=== PATIENT | female | born 2000 | race Caucasian/White ===

== ENCOUNTER → 2020-06-20 | Outpatient (CLI) | payer OTHER ==
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
== END | disposition home or self-care (01) ==
LOC: RADCTMAIN 07:56
PROVIDERS: ATTEND Family Medicine
DX: S05.12XA Contusion of eyeball and orbital tissues, left eye, initial encounter (principal)
CPT/HCPCS: 70480

== ENCOUNTER 2021-02-04 16:45 | Emergency (ER) | payer OTHER ==
[2021-02-04 17:18] VITALS: TEMP 98.1
--- NOTE | 2021-02-04 19:51 | ED ---
General Adult HPI - General Chief complaint: Abdominal Pain Stated complaint: , Cramping Source: patient, family, RN notes reviewed Mode of arrival: ambulatory Limitations: no limitations - History of Present Illness Initial comments: 20-year-old female presents to the emergency department for evaluation of vaginal bleeding and discharge, and low back pressure. Patient states she had unprotected sex approximately 5 weeks ago and then had an abnormal period this month. States she had more cramping than usual which has since resolved. States she is concerned about possible . Denies fever, chills, headache, chest pain, shortness of breath, vomiting, constipation, diarrhea or dysuria. - Related Data Previous Rx's Medication Instructions Recorded Ondansetron Odt [Zofran Odt] 4 mg PO Q8HR PRN #10 tab 02/04/21 Allergies Allergy/AdvReac Type Severity Reaction Status Date / Time No Known Allergies Allergy Verified 02/04/21 17:18 Review of Systems ROS Statement: Those systems with pertinent positive or pertinent negative responses have been documented in the HPI. ROS Other: All systems not noted in ROS Statement are negative. Past Medical History Past Medical History: No Reported History History of Any Multi-Drug Resistant Organisms: None Reported Past Surgical History: No Surgical Hx Reported Past Psychological History: Anxiety, Depression, PTSD Smoking Status: Current every day smoker Past Alcohol Use History: None Reported Past Drug Use History: None Reported General Exam Limitations: no limitations (Well-developed, well-nourished female in no acute distress. Initial temperature 98.1, pulse 107, respirations 18, blood pressure 137/91, pulse ox 98% on room air) General appearance: alert, in no apparent distress ENT exam: Present: normal exam, normal oropharynx, mucous membranes moist Respiratory exam: Present: normal lung sounds bilaterally. Absent: respiratory distress, wheezes, rales, rhonchi, stridor Cardiovascular Exam: Present: regular rate, normal rhythm, normal heart sounds. Absent: systolic murmur, diastolic murmur, rubs, gallop, clicks GI/Abdominal exam: Present: soft, normal bowel sounds. Absent: distended, tenderness, guarding, rebound, rigid Back exam: Present: normal inspection. Absent: CVA tenderness (R), CVA tenderness (L) Neurological exam: Present: alert, oriented X3, CN II-XII intact Psychiatric exam: Present: normal affect, normal mood Skin exam: Present: warm, dry, intact, normal color. Absent: rash Course Vital Signs 02/04/21 02/04/21 17:12 21:49 Temperature 98.1 F Pulse Rate 107 H 75 Respiratory 18 17 Rate Blood Pressure 137/91 126/91 O2 Sat by Pulse 98 96 Oximetry Medical Decision Making - Medical Decision Making 20-year-old female presents to the emergency department for evaluation of possible . Upon exam, patient is resting comfortably and in no acute distress. Reports unprotected sex 5 weeks ago. She is in a monogamous relationship and is not concerned about any type of pelvic infection. Abdomen is soft and nontender. LMP 01/27/2021. Urinalysis is unremarkable. Urine test is negative. Upon departure, patient does complain of an episode of nausea. States her dose of Paxil was recently increased. Patient was not aware that this could be a contributing factor. She was given a dose of oral zofran and reassured. Patient will be discharged home to follow up with her primary care provider. Return parameters were discussed in detail. Patient verbalizes understanding and agrees with this plan. His care was discussed with my attending Dr. Haddad. - Lab Data Lab Results 02/04/21 02/04/21 Range/Units 19:54 19:54 Urine Color Light Yellow Urine Appearance Clear (Clear) Urine pH 6.5 (5.0-8.0) Ur Specific [place] 1.005 (1.001-1.035) Urine Protein Negative (Negative) Urine Glucose (UA) Negative (Negative) Urine Ketones Negative (Negative) Urine Blood Small H (Negative) Urine Nitrite Negative (Negative) Urine Bilirubin Negative (Negative) Urine Urobilinogen <2.0 (<2.0) mg/dL Ur Leukocyte Esterase Negative (Negative) Urine RBC 3 (0-5) /hpf Urine WBC 1 (0-5) /hpf Ur Squamous Epith Cells 2 (0-4) /hpf Urine Bacteria Rare H (None) /hpf Urine Mucus Rare H (None) /hpf Urine HCG, Qual Not Detected (Not Detectd) Disposition Clinical Impression: Menstrual changes, Nausea Disposition: HOME SELF-CARE Condition: Stable Instructions (If sedation given, give patient instructions): Dysmenorrhea (ED), Acute Nausea and Vomiting (ED) Additional Instructions: Track menstrual cycle carefully. May take Tylenol or Motrin as needed for discomfort. Follow up with your PCP for a recheck. Establish with [facility]. Return to the emergency department with any new, worsening, or concerning symptoms. Prescriptions: Ondansetron Odt [Zofran Odt] 4 mg PO Q8HR PRN #10 tab PRN Reason: Nausea Is patient prescribed a controlled substance at d/c from ED?: No Referrals: Davian Mays MD [Primary Care Provider] - 1-2 days Time of Disposition: 21:02
[2021-02-04 20:30] LABS: Appearance,Urine Clear (Clear); Bacteria,Urine Rare /hpf; Bilirubin,Urine Negative (Negative); Blood,Urine Small (Negative); Color,Urine Light Yellow; Glucose,Urine (UA) Negative (Negative); Ketones,Urine Negative (Negative); Leukocyte Esterase,Urine Negative (Negative); Mucus,Urine Rare /hpf; Nitrite,Urine Negative (Negative); PH, Urine 6.5 (5.0-8.0); Protein,Urine Negative (Negative); RBC,Urine 3 /hpf (0-5); Specific Gravity,Urine 1.005 (1.001-1.035); Squamous Epithelial Cell,Urine 2 /hpf (0-4); Urobilinogen,Urine <2.0 mg/dL (<2.0); WBC,Urine 1 /hpf (0-5)
[2021-02-04] MEDS ORDERED: ONDANSETRON ODT 4 MG TAB PO STA (21:33)
[2021-02-04 21:50] VITALS: BP 126/91; PULSE 75; RESP 17
== END 2021-02-04 21:50 | disposition home or self-care (01) ==
LOC: EC 16:45
DX: N92.6 Irregular menstruation, unspecified (principal); R11.0 Nausea; F17.200 Nicotine dependence, unspecified, uncomplicated
CPT/HCPCS: 81001; 81025; 99284

== ENCOUNTER 2022-02-20 17:12 | Emergency (ER) | payer OTHER ==
[2022-02-20 17:16] VITALS: RESP 16
--- NOTE | 2022-02-20 19:11 | ED ---
Female Urogenital HPI - General Chief complaint: OB/Uterine Contractions Stated complaint: 18 wks preg, abd pain Time Seen by Provider: 02/20/22 19:08 Source: patient, family, RN notes reviewed Mode of arrival: ambulatory Limitations: no limitations - History of Present Illness Initial comments: Patient is a pleasant 21-year-old female presents to the emergency room with her spouse with concerns regarding abdominal pain she reports abdo larry cramping to the left lower abdomen ongoing since just prior to her arrival to the emergency room today. She reports that this symptom is persistent and consistent without any waxing or waning features. She is currently 18 weeks by last menstrual cycle. She reports a normal bowel movement this morning and denies any other associated symptoms including any nausea vomiting fevers or chills. She is on treatment for bacterial vaginosis by her [employer] with the use of both oral and intravaginal Flagyl. She states that she was treated approximately 2 weeks ago for bacterial vaginosis as well. She denies any other vaginal discharge not consistent with bacterial vaginosis; she denies any vaginal bleeding or diffuse uterine cramping. This is her first and she follows with [employer] [employer] out of [place] Dr. Cruz. She has no other significant past medical history. - Related Data Previous Rx's Medication Instructions Recorded Ondansetron Odt [Zofran Odt] 4 mg PO Q8HR PRN #10 tab 02/04/21 Cephalexin [Keflex] 500 mg PO Q12H 10 Days #20 cap 02/20/22 Allergies Allergy/AdvReac Type Severity Reaction Status Date / Time No Known Allergies Allergy Verified 02/20/22 17:17 Review of Systems ROS Statement: Those systems with pertinent positive or pertinent negative responses have been documented in the HPI. ROS Other: All systems not noted in ROS Statement are negative. Past Medical History Past Medical History: No Reported History History of Any Multi-Drug Resistant Organisms: None Reported Past Surgical History: No Surgical Hx Reported Past Psychological History: Anxiety, Depression, PTSD Smoking Status: Current every day smoker Past Alcohol Use History: None Reported Past Drug Use History: None Reported General Exam - General Exam Comments Initial Comments: GENERAL: No acute distress, well developed, well nourished. HEENT: Normocephalic, atraumatic. Pupils equal, round, reactive to light. LUNGS: Clear to auscultation, no adventitious sounds, no use of accessory muscles. HEART: Regular rate and rhythm without murmur, rub, or gallop. ABDOMEN: Slightly rounded lower abdomen consistent with current identity gestation, no tenderness or ascites. Normal bowel sounds. DERMATOLOGIC: Skin intact, without rashes or lesions noted. EXTREMITIES: No edema. No tenderness. Moves all extremities. NEUROLOGIC: Alert & oriented x 3. CN II-XII grossly intact. PSYCHIATRIC: Normal affect and behavior. Limitations: no limitations Course Vital Signs 02/20/22 02/20/22 02/20/22 17:15 19:23 21:16 Temperature 98.2 F 98 F Pulse Rate 122 H 95 92 Respiratory 16 16 16 Rate Blood Pressure 129/83 136/87 112/72 O2 Sat by Pulse 97 99 99 Oximetry 02/20/22 21:58 Temperature 98 F Pulse Rate 88 Respiratory 16 Rate Blood Pressure 115/70 O2 Sat by Pulse 99 Oximetry Medical Decision Making - Medical Decision Making Was pt. sent in by a medical professional or institution? @ -No Did you speak to anyone other than the patient for history? @ -No Did you review nursing and triage notes? @ -Yes and agree Were old charts reviewed? @ -No Differential Diagnosis? @ -Differential Abdominal Pain Women: Appendicitis, Cholecystitis, diverticulosis, ischemic bowel, pancreatitis, hepatitis, UTI, gastroenteritis, AAA, incarcerated hernia, bowel obstruction, constipation, inflammatory bowel, hepatitis, peptic ulcer disease, splenic infarction, perforated viscus, vulvitis, ovarian torsion, PID, kidney stone, placenta abruption, this is not meant to be an all-inclusive list EKG interpreted by me (3pts min.)? @ -None X-rays interpreted by me (1pt min.)? @ -. CT interpreted by me (1pt min.)? @ -None U/S interpreted by me (1pt. min.)? @ -None; OB ultrasound interpreted by radiologist impression single live intrauterine gestation with age of ultrasound 19 weeks 0 days concordant with dates of last menstrual cycle with a heart rate of 52 bpm no abnormalities no lou. What testing was considered but not performed? (CT, X-rays, U/S, labs)? Why? @- None What meds were considered but not given? Why? @ -None Did you discuss the management of the patient with other professionals? @ -No Did you reconcile home meds? @ -Reviewed not reconciled Was smoking cessation discussed for >3mins.? @ -None Was critical care preformed (if so, how long)? @ -None Were there social determinants of health that impacted care today? How? (Homelessness, low income, unemployed, alcoholism, drug addiction, transportation, low edu. Level, literacy, decrease access to med. care, retirement, rehab)? @ -No Was there de-escalation of care discussed even if they declined? (Discuss DNR or withdrawal of care, Hospice)? @ -No What co-morbidities impacted this encounter? (DM, HTN, Smoking, COPD, CAD, Cancer, CVA, Hep., AIDS, mental health diagnosis, sleep apnea, morbid obesity)? @ -None Was patient admitted / discharged? @ -21-year-old female presenting to the emergency room with complaints of abdominal pain and currently 19 weeks without any vaginal bleeding; following with OB in [place]. Will begin workup for female abdominal pain with with ultrasound of the uterus to evaluate fetus. CBC, urinalysis. Rh typing and hCG serum quant. OB ultrasound reveals a viable intrauterine with strong heartbeat without any intrauterine complications at expected gestational age. CBC with mild leukocytosis and elevated neutrophils. Urinalysis consistent for urinary tract infection. Serum hCG levels consistent with current gestation as well. No indication for further diagnostic imaging or laboratory studies. Findings discussed with patient and spouse. Questions and concerns answered. Return parameters to the emergency room reviewed. Will discharge home in stable condition with treatment of oral antibiotics for her UTI. Encouraged follow-up with her OB and primary care provider as appropriate. Undiagnosed new problem with uncertain prognosis? @ -None Drug Therapy requiring intensive monitoring for toxicity (Heparin, Nitro, Insulin, Cardizem)? @ -None Were any procedures done? @ -None Diagnosis/symptom? @ - UTI in Acute, or Chronic, or Acute on Chronic? @ -Acute Uncomplicated (without systemic symptoms) or Complicated (systemic symptoms)? @ -Uncomplicated Side effects of treatment? @ -None Exacerbation, Progression, or Severe Exacerbation] @ -No Poses a threat to life or bodily function? @ -No Case discussed with Dr. Cifuentes - Lab Data Result diagrams: 02/20/22 19:22 Lab Results 02/20/22 02/20/22 02/20/22 Range/Units 19:14 19:14 19:22 WBC 14.3 H (3.8-10.6) k/uL RBC 3.80 (3.80-5.40) m/uL Hgb 12.1 (11.4-16.0) gm/dL Hct 33.8 L (34.0-46.0) % MCV 89.0 (80.0-100.0) fL MCH 31.8 (25.0-35.0) pg MCHC 35.8 (31.0-37.0) g/dL RDW 13.1 (11.5-15.5) % Plt Count 276 (150-450) k/uL MPV 7.4 Neutrophils % 78 % Lymphocytes % 16 % Monocytes % 3 % Eosinophils % 2 % Basophils % 0 % Neutrophils # 11.2 H (1.3-7.7) k/uL Lymphocytes # 2.3 (1.0-4.8) k/uL Monocytes # 0.5 (0-1.0) k/uL Eosinophils # 0.3 (0-0.7) k/uL Basophils # 0.0 (0-0.2) k/uL HCG, Quant 5896.3 mIU/mL Urine Color Yellow Urine Appearance Cloudy H (Clear) Urine pH 6.0 (5.0-8.0) Ur Specific [place] 1.021 (1.001-1.035) Urine Protein Negative (Negative) Urine Glucose (UA) Negative (Negative) Urine Ketones Negative (Negative) Urine Blood Small H (Negative) Urine Nitrite Negative (Negative) Urine Bilirubin Negative (Negative) Urine Urobilinogen <2.0 (<2.0) mg/dL Ur Leukocyte Esterase Small H (Negative) Urine RBC 9 H (0-5) /hpf Urine WBC 3 (0-5) /hpf Ur Squamous Epith Cells 8 H (0-4) /hpf Amorphous Sediment Occasional H (None) /hpf Urine Bacteria Rare H (None) /hpf Urine Mucus Occasional H (None) /hpf Blood Type Blood Type Recheck Bld Type Recheck Status 02/20/22 Range/Units 19:22 WBC (3.8-10.6) k/uL RBC (3.80-5.40) m/uL Hgb (11.4-16.0) gm/dL Hct (34.0-46.0) % MCV (80.0-100.0) fL MCH (25.0-35.0) pg MCHC (31.0-37.0) g/dL RDW (11.5-15.5) % Plt Count (150-450) k/uL MPV Neutrophils % % Lymphocytes % % Monocytes % % Eosinophils % % Basophils % % Neutrophils # (1.3-7.7) k/uL Lymphocytes # (1.0-4.8) k/uL Monocytes # (0-1.0) k/uL Eosinophils # (0-0.7) k/uL Basophils # (0-0.2) k/uL HCG, Quant mIU/mL Urine Color Urine Appearance (Clear) Urine pH (5.0-8.0) Ur Specific [place] (1.001-1.035) Urine Protein (Negative) Urine Glucose (UA) (Negative) Urine Ketones (Negative) Urine Blood (Negative) Urine Nitrite (Negative) Urine Bilirubin (Negative) Urine Urobilinogen (<2.0) mg/dL Ur Leukocyte Esterase (Negative) Urine RBC (0-5) /hpf Urine WBC (0-5) /hpf Ur Squamous Epith Cells (0-4) /hpf Amorphous Sediment (None) /hpf Urine Bacteria (None) /hpf Urine Mucus (None) /hpf Blood Type O Positive Blood Type Recheck No Previous Record Bld Type Recheck Status [facility] ONLY - Radiology Data Radiology results: report reviewed, image reviewed Disposition Clinical Impression: Abdominal pain, UTI (urinary tract infection) Disposition: HOME SELF-CARE Condition: Stable Instructions (If sedation given, give patient instructions): Abdominal Pain in (ED), Urinary Tract Infection in (ED) Additional Instructions: Please complete course of antibiotic therapy as prescribed today along with prescription previously prescribed by her OB for bacterial vaginosis. Please complete follow-up blood work in 48-72 hours. Please follow-up with your primary care provider and your [employer]. Please return to the Emergency Department if symptoms worsen or any other concerns. Prescriptions: Cephalexin [Keflex] 500 mg PO Q12H 10 Days #20 cap Is patient prescribed a controlled substance at d/c from ED?: No Referrals: Davian Mays MD [Primary Care Provider] - 1-2 days VIJAY CRUZ MD [REFERRING] - 1-2 days Time of Disposition: 21:49
[2022-02-20 19:23] VITALS: TEMP 98
[2022-02-20 19:35] LABS: Basophils % (A) 0 %; Eosinophils # (A) 0.3 k/uL (0-0.7); Eosinophils % (A) 2 %; HCT 33.8 % (34.0-46.0); HGB 12.1 gm/dL (11.4-16.0); Lymphocytes # (A) 2.3 k/uL (1.0-4.8); Lymphocytes % (A) 16 %; MCH 31.8 pg (25.0-35.0); MCHC 35.8 g/dL (31.0-37.0); Mean Platelet Volume 7.4; Monocytes # (A) 0.5 k/uL (0-1.0); Monocytes % (A) 3 %; Neutrophils # (A) 11.2 k/uL (1.3-7.7); Neutrophils % (A) 78 %; Platelet Count 276 k/uL (150-450); RDW 13.1 % (11.5-15.5); WBC 14.3 k/uL (3.8-10.6)
[2022-02-20 19:40] LABS: Amorphous Sediment,Urine Occasional /hpf; Appearance,Urine Cloudy (Clear); Bacteria,Urine Rare /hpf; Bilirubin,Urine Negative (Negative); Blood,Urine Small (Negative); Color,Urine Yellow; Glucose,Urine (UA) Negative (Negative); Ketones,Urine Negative (Negative); Leukocyte Esterase,Urine Small (Negative); Mucus,Urine Occasional /hpf; Nitrite,Urine Negative (Negative); Protein,Urine Negative (Negative); RBC,Urine 9 /hpf (0-5); Specific Gravity,Urine 1.021 (1.001-1.035); Squamous Epithelial Cell,Urine 8 /hpf (0-4); Urobilinogen,Urine <2.0 mg/dL (<2.0); WBC,Urine 3 /hpf (0-5)
--- NOTE | 2022-02-20 20:08 | US ---
EXAMINATION TYPE: US OB >= 14 wk fetus DATE OF EXAM: 02/20/2022 COMPARISON: None CLINICAL HISTORY: abdominal pain abdominal pain since last night. . Patient states her anatomy sc an is Feb.27 TECHNIQUE: Transabdominal (TA) GESTATIONAL AGE / DATING Physician Established: (18 weeks/6 days) EDC: 07/18/22 Dates by First Scan: No previous this is first scan Dates by Current Scan: (19 weeks/0 days) EDC: 07/17/22 Beta HCG (if available): Not available at this time SURVEY IUP: Single PLACENTA: Posterior PREVIA: No Previa QAMAR: 11.5 cm Normal CERVICAL LENGTH (transabdominal: norm > 3.0cm): 3.2 cm BIOMETRY PRESENTATION: Breech LIE: Longitudinal BPD: 4.2 cm 18 weeks / 4 days HC: 15.9 cm 18 weeks / 5 days AC: 14.4 cm 19 weeks / 5 days FL: 3.0 cm 19 weeks / 3 days ESTIMATED WEIGHT IN GRAMS: 293 grams ESTIMATED WEIGHT IN LBS/OZ: 0 lbs. 10 oz. WEIGHT PERCENTAGE BASED ON ESTABLISHED DATES: 80% HC/AC: 1.1 Normal FL/AC: 21.0 Normal HEART RATE: 152 bpm RHYTHM: Normal IMPRESSION: Single live intrauterine gestation with ultrasound age of 19 weeks 0 days which is concordant with da sonam by last menstrual period.
[2022-02-20] MEDS ORDERED: SODIUM CHLORIDE 0.9% 1,000 ML IV STA (21:18)
[2022-02-20 22:00] VITALS: BP 115/70; PULSE 88
== END 2022-02-20 21:58 | disposition home or self-care (01) ==
LOC: EC 17:12
DX: O23.42 Unspecified infection of urinary tract in pregnancy, second trimester (principal); N39.0 Urinary tract infection, site not specified; O99.612 Diseases of the digestive system complicating pregnancy, second trimester; K57.90 Diverticulosis of intestine, part unspecified, without perforation or abscess without bleeding; O99.342 Other mental disorders complicating pregnancy, second trimester; F41.9 Anxiety disorder, unspecified; F32.A Depression, unspecified; O99.332 Smoking (tobacco) complicating pregnancy, second trimester; F17.200 Nicotine dependence, unspecified, uncomplicated; Z3A.18 18 weeks gestation of pregnancy
CPT/HCPCS: 36415; 76805; 81001; 84702; 85025; 86900; 86901; 96360; 99284

== ENCOUNTER → 2023-09-08 | Outpatient (CLI) | payer OTHER ==
--- NOTE | 2023-09-10 12:35 | US ---
EXAMINATION TYPE: US thyroid st tissue head/neck DATE OF EXAM: 09/08/2023 COMPARISON: NONE CLINICAL INDICATION: Female, 23 years old with history of E05.90 THYROTOCISOIS; hyperthyroidism GLAND SIZE: Right Lobe: 5.2 x 1.9 x 2.1 cm Overall Parenchyma: homogeneous Left Lobe: 4.6 x 3.1 x 1.8 cm Overall Parenchyma: homogeneous Isthmus Thickness: 0.4 cm NODULES RIGHT: # of nodules measured on right: 0 LEFT: # of nodules measured on left: 0 ISTHMUS: # of nodules measured in the isthmus: 0 Bilateral neck scanned, no evidence of lymphadenopathy. IMPRESSION: Unremarkable study. 2017 ACR TI-RADS LEVEL: *Highest TI-RADS level nodule reported
== END | disposition home or self-care (01) ==
LOC: RADUSWWP 16:27
PROVIDERS: ATTEND Family Medicine
DX: E05.90 Thyrotoxicosis, unspecified without thyrotoxic crisis or storm (principal); E04.1 Nontoxic single thyroid nodule
CPT/HCPCS: 76536